=== PATIENT | female | born 1985 ===

== ENCOUNTER 2019-12-12 09:12 | Inpatient (IN) | payer OTHER ==
[2019-12-12] MEDS ORDERED: FAMOTIDINE 20 MG/2 ML INJ IV ONE (10:05)
[2019-12-12] MEDS ORDERED: BICITRA ORAL LIQD 30ML PO ONE (10:05)
[2019-12-12] MEDS ORDERED: METOCLOPRAMIDE 10 MG/2 ML INJ IV ONE (10:05)
[2019-12-12 10:25] LABS: Basophils % (Auto) 0.2 % (0.0-1.8); Eosinophils # (Auto) 0.1 K/mm3 (0.0-0.4); Hematocrit 34.4 % (30.3-42.9); Hemoglobin 11.6 gm/dl (10.1-14.3); Lymphocytes # (Auto) 1.3 K/mm3 (1.2-5.4); Lymphocytes % (Auto) 18.3 % (13.4-35.0); Mean Corpuscular HGB Conc 34 % (30-34); Mean Corpuscular Volume 86 fl (79-97); Monocytes # (Auto) 0.6 K/mm3 (0.0-0.8); Monocytes % (Auto) 8.3 % (0.0-7.3); Platelet Count 291 K/mm3 (140-440); Red Blood Count 3.99 M/mm3 (3.65-5.03); Red Cell Distribution Width 14.2 % (13.2-15.2)
[2019-12-12] MEDS: LACTATED RINGERS 1,000 ML IV SCH ×2 (10:30→11:12)
[2019-12-12] MEDS ORDERED: diphenhydrAMINE 50 MG/ML VIAL IV PRN (10:34)
[2019-12-12] MEDS ORDERED: HYDROmorphone 1 MG/1 ML INJ IV PRN (10:34)
[2019-12-12] MEDS ORDERED: PROMETHAZINE 25 MG TAB PO PRN (10:34)
[2019-12-12] MEDS ORDERED: NALOXONE 0.4 MG/1 ML INJ IV PRN ×2 (10:34→13:17)
[2019-12-12] MEDS ORDERED: PROMETHAZINE 25 MG RECT SUPP PR PRN (10:34)
[2019-12-12] MEDS ORDERED: NalbUPHINE 10 MG/1 ML INJ IV PRN (10:34)
[2019-12-12] MEDS ORDERED: ONDANSETRON 4 MG/2 ML INJ IV PRN ×2 (10:34→13:17)
--- NOTE | 2019-12-12 10:34 | Anesthesia Consultation ---
Anesthesia Consult and Med Hx Date of service: 12/12/19 - Airway Anesthetic Teeth Evaluation: Good ROM Head & Neck: Adequate Mental/Hyoid Distance: Adequate Mallampati Class: Class II Intubation Access Assessment: Good - Pulmonary Exam CTA: Yes - Cardiac Exam Cardiac Exam: RRR - Pre-Operative Health Status ASA Pre-Surgery Classification: ASA2 Proposed Anesthetic Plan: Spinal - Pulmonary Hx Smoking: No Hx Asthma: No Hx Sleep Apnea: No - Cardiovascular System Hx Hypertension: No - Central Nervous System Hx Neuromuscular Disorder: No Hx Seizures: No - Gastrointestinal Hx Gastroesophageal Reflux Disease: No - Endocrine Hx Renal Disease: No Hx End Stage Renal Disease: No Hx Cirrhosis: No Hx Liver Disease: No Hx Insulin Dependent Diabetes: No Hx Non-Insulin Dependent Diabetes: No - Hematic Hx Anemia: No Hx Sickle Cell Disease: No - Other Systems Hx Alcohol Use: No Hx Substance Use: No
--- NOTE | 2019-12-12 10:34 | Anesthesia Day of Surgery ---
Anesthesia Day of Surgery - Day of Surgery Patient Examined: Yes Patient H&P Reviewed: Yes Patient is NPO: Yes Beta Blockers: No Cardiac Clearance: No Pulmonary Clearance: No Tacho's Test: N/A
[2019-12-12] MEDS ORDERED: OXYTOCIN 20 UNIT/1000ML DRIP 20 UNITS/1,000 ML BAG IV SCH ×3 (11:00→14:00)
[2019-12-12] MEDS ORDERED: ceFAZolin/Water 2 GM/20 ML 2 GM/20 ML SYRINGE IV NR (11:00)
[2019-12-12] MEDS ORDERED: ONDANSETRON 4 MG/2 ML INJ ONE (11:34)
[2019-12-12] MEDS ORDERED: KETOROLAC 30 MG/1 ML INJ ONE (11:34)
[2019-12-12] MEDS ORDERED: BUPIVACAINE /DEX-WATER 0.75% (2 ML) AMPULE INFILTRATI ONE (11:34)
[2019-12-12] MEDS ORDERED: DEXMEDETOMIDINE 200 MCG/2 ML VIAL IV ONE (11:34)
--- NOTE | 2019-12-12 11:55 | History and Physical Report ---
History of Present Illness Date of examination: 12/12/19 Date of admission: 12/12/19 09:12 Chief complaint: here for her 3rd c/s. History of present illness: Term preg. 2 previous sections. JANICE 12/18/19. Past History Past Surgical History: section - Obstetrical History Expected Date of Delivery: 12/18/19 Actual Gestation: 39 Week(s) 1 Day(s) : 7 Medications and Allergies Allergies Allergy/AdvReac Type Severity Reaction Status Date / Time No Known Allergies Allergy Unverified 04/14/15 19:34 Home Medications Medication Instructions Recorded Confirmed Last Taken Type HYDROcodone/APAP 5-325 [[place] 1 each PO Q6HR PRN #20 tablet 04/24/15 Unknown Rx 5/325] Methylergonovine [Methergine] 0.2 mg PO Q8HR #9 tablet 04/24/15 Unknown Rx Active Meds: Active Medications Diphenhydramine HCl (Benadryl) 12.5 mg IV Q2H PRN PRN Reason: Itching Hydromorphone HCl (Dilaudid) 0.5 mg IV Q5M PRN PRN Reason: BREAK Oxytocin/Sodium Chloride (Pitocin/Ns 20 Unit/1000ml Drip) 20 units in 1,000 mls @ 0 mls/hr IV TITR DO Lactated Ringer's (Lactated Ringers) 1,000 mls @ 2,250 mls/hr IV PREOP DO Stop: 12/13/19 11:27 Last Admin: 12/12/19 11:12 Dose: 2,250 mls/hr Documented by: Cefazolin Sodium (Ancef/Sterile Water 2 Gm/20 Ml) 2 gm in 20 mls @ 80 mls/hr IV PREOP NR; Protocol Stop: 12/12/19 23:59 Nalbuphine HCl (Nalbuphine) 2.5 mg IV Q2H PRN PRN Reason: Itching Naloxone HCl (Naloxone) 0.2 mg IV Q2MIN PRN PRN Reason: Res Rate </= 8 or 02 SAT < 92% Ondansetron HCl (Zofran) 4 mg IV Q8H PRN PRN Reason: Nausea And Vomiting Promethazine HCl (Phenergan) 25 mg PO Q6H PRN PRN Reason: Nausea And Vomiting Promethazine HCl (Phenergan) 25 mg NM Q6H PRN PRN Reason: Nausea And Vomiting Sodium Chloride (Sodium Chloride Flush Syringe 10 Ml) 10 ml IV PRN NR Stop: 12/12/19 23:59 Review of Systems All systems: negative - Vital Signs Vital signs: Vital Signs Pulse BP 75 116/63 12/12/19 09:51 12/12/19 09:51 Temp Pulse Resp BP Pulse Ox 98.4 F 75 22 116/63 100 12/12/19 09:52 12/12/19 10:38 12/12/19 09:52 12/12/19 09:51 12/12/19 10:38 - Physical Exam Breasts: Positive: deferred Lungs: Positive: Normal air movement Abdomen: Positive: normal appearance, distention. Negative: tenderness, guarding Extremities: Positive: normal Deep Tendon Reflex Grade: Normal +2 - Obstetrical FHR: auscultation normal Results Result Diagrams: 12/12/19 10:00 Abnormal lab results 12/12/19 Range/Units 10:00 [place] % (Auto) 8.3 H (0.0-7.3) % Seg Neutrophils % 72.2 H (40.0-70.0) % All other labs normal. Assessment and Plan - Patient Problems (1) Term Current Visit: Yes Status: Acute (2) Previous section complicating Current Visit: Yes Status: Acute Plan to address problem: Pros and cons of a repeat section were discussed. Patient gave her consent for repeat section with lysis of adhesions.
[2019-12-12] MEDS ORDERED: PHENYLEPHRINE/NS 1,000 MCG/10 ML SYRINGE (OR USE) IV ONE (12:02)
[2019-12-12] MEDS ORDERED: ePHEDrine SULFATE 50 MG/1 ML INJ ONE (12:09)
[2019-12-12] MEDS ORDERED: ceFAZolin/STERILE WATER 2 GM/20 ML SYRINGE IV ONE (12:20)
[2019-12-12] MEDS ORDERED: fentaNYL 100 MCG/2 ML INJ ONE (12:48)
[2019-12-12] MEDS ORDERED: LANOLIN/ZINC/DIMETHICONE (LANSINOH) 7 GM TP PRN (13:17)
[2019-12-12] MEDS ORDERED: WITCH HAZEL/ GLYCERIN PAD TP PRN (13:17)
--- NOTE | 2019-12-12 13:25 | Progress Note ---
Spinal Anesthesia Block - Spinal Anesthesia Block Start Time: 11:45 Stop Time: 13:25 Performed by:: DEAN PATEL Procedure: Spinal anesthesia block is being performed for []. H&P, labs have been reviewed. Patient's questions and concerns have been answered. Informed consent has been performed. Timeout has was performed. Patient in sitting position on side of bed. Sterile prep and drape was performed. [3] mL 1% lidocaine skin wheal at L [3]-L [4]. Needle introducer advanced. 25-gauge spinal needle advanced, [+] CSF [-] blood. [10.5mg Marcaine and 10mcg Precedex] Spinal dose was given. All needles removed. Patient tolerated procedure well.
[2019-12-12] MEDS ORDERED: ACETAMINOPHEN 325 MG TAB PO PRN (13:26)
--- NOTE | 2019-12-12 13:33 | Operative Report ---
Operative Report Operative Report: Date of surgery: December 12, 2019 Preoperative diagnoses: Term , 2 previous section, peritoneal adhesions. Postoperative diagnoses: The same. Operation: Lower segment transverse delivery, lysis of adhesions Surgeon:Cristel Lamas MD Pulper Operator: Sumit Griffin CRNA Anesthesia: Spinal block Estimated blood loss: 750 mL Complications: None Findings: There was a live baby girl in vertex, Apgars were 8/9 with weight 5 pounds 13 ounces. The ovaries, fallopian tubes and the uterus were all grossly normal. The greater omentum was palpably and grossly normal but was adherent to the anterior parietal peritoneum mostly in the midline inferior to the umbilicus. Procedure in detail: The patient was taken to the operating room and given a spinal block. Patient was placed in the straight supine position and a Mckeon catheter was inserted. The patient was prepped in the abdomen. The drapes were placed. A timeout was done. With the go ahead from the children's attendant, a Pfannenstiel incision was made. This incision was carried across the subcutaneous layer to the fascia which was also divided transversely. The recti abdominis muscle flaps were stripped from the fascia using a combination of blunt and sharp dissections. The muscles were in the midline to gain access to the anterior parietal peritoneum which was divided after excluding any underlying viscera. The access to the peritoneal cavity was then widened by manual stretching. The bladder blade was applied. The utero vesicle peritoneal flap was divided transversely allowing the bladder to be displaced caudally. The uterine incision was placed in the lower segment transversely. The uterine incision was carried to the decidual layer. The uterine incision was extended on both sides using the bandage scissors. The amniotic sac was ruptured with clear fluid. The head was lifted out of the false maternal pelvis and delivered through the incision using fundal pressure aided with the Kiwi. The airways were bulb suctioned beginning with the mouth. Continuing fundal pressure combined with traction on the mandibular processes of the jaw delivered the rest of the baby. The umbilical cord was double clamped and divided. The baby was carefully transferred to the pediatric team. The placenta was manually removed from the uterine cavity. The uterine cavity was explored and was empty of any placental remnants. The uterine incision was repaired in 2 layers with #1 Vicryl. The surgical line on the uterus was hemostatic. The adherences of the greater omentum to the anterior parietal peritoneum were divided and pedicles tied off with #1 Vicryl. Hemostasis was satisfactory. Blood and clots were cleared from the peritoneal cavity. The anterior parietal peritoneum was repaired with #1 Vicryl. The fascia was repaired with #1 Vicryl. The subcutaneous layer was made hemostatic using the Bovie before the skin was closed subcuticularly with 4-0 Vicryl. There were no complications. The estimated blood loss was 750 mL. All sponges and instrument counts were correct. Patient was safely transferred to the recovery room.
[2019-12-12] MEDS: KETOROLAC 30 MG/1 ML INJ IV PRN (15:51)
[2019-12-12] MEDS: MORPHINE 4 MG/1 ML INJ IV PRN ×2 (17:27→20:50)
[2019-12-12] MEDS: ceFAZolin/NS 1 GM/50 ML 1 GM/50 ML BAG IV SCH (20:51)
[2019-12-13] MEDS: KETOROLAC 30 MG/1 ML INJ IV PRN ×2 (00:01→06:05)
[2019-12-13] MEDS: ceFAZolin/NS 1 GM/50 ML 1 GM/50 ML BAG IV SCH (03:46)
[2019-12-13 05:56] LABS: Hematocrit 26.9 % (30.3-42.9); Hemoglobin 9.1 gm/dl (10.1-14.3)
--- NOTE | 2019-12-13 08:06 | Post Anesthesia Evaluation ---
- Post Anesthesia Evaluation Patient Participated: Yes Airway Patent: Yes Stable Respiratory Function: Yes Nausea/Vomiting: No Temp > 96.8F: Yes Pain Manageable: Yes Adequeate Hydration: Yes Anesthesia Complications: No Block Receding Appropriately: Yes Patient on Ventilator: No
[2019-12-13] MEDS: PRENATAL VIT27-FE FUMARATE-FOLIC ACID VIT TAB PO SCH (09:52)
[2019-12-13] MEDS: HYDROcodone/ACETAMINOPHEN 5-325 MG TAB PO PRN ×3 (09:52→22:54)
[2019-12-13] MEDS: FERROUS SULFATE 325 MG TAB PO SCH (09:52)
--- NOTE | 2019-12-13 11:59 | Progress Note ---
Assessment and Plan A: /postop day 1 S/P LTCS. Anemia. P: Continue iron supplementation. Encouraged ambulation. Advance diet to regular diet. Subjective - Subjective Date of service: 12/13/19 Principal diagnosis: day 1 S/P LTCS Interval history: day 1 S/P LTCS. Anemia, on oral iron supplementation. Patient is voiding without difficulty, ambulating well, passing gas, tolerating liquid diet. Plans to eat a regular diet for lunch. Reports small amount of lochia. Patient reports: appetite normal, voiding normally, pain well controlled, flatus, ambulating normally, no dizzy ambulation, no nauseated : doing well Objective - Vital Signs Latest vital signs: Vital Signs Temp Pulse Resp BP Pulse Ox 12/13/19 09:52 20 12/13/19 07:49 98.4 F 76 20 94/48 96 12/13/19 05:08 98.2 F 78 20 98/51 96 12/12/19 23:27 98.2 F 82 20 96/52 96 12/12/19 19:48 98.2 F 79 20 99/50 94 12/12/19 15:09 97.6 F 74 16 96/47 98 12/12/19 14:25 98.1 F 89 20 102/41 98 12/12/19 14:10 91 H 18 115/53 98 12/12/19 13:55 92 H 19 102/44 99 12/12/19 13:50 93 H 22 107/54 98 12/12/19 13:40 89 14 106/63 98 12/12/19 13:35 92 H 17 108/53 99 12/12/19 13:30 84 16 109/42 99 12/12/19 13:25 82 17 97/61 99 12/12/19 13:23 97.6 F 86 16 96/54 99 Intake and Output 12/12/19 12/13/19 12/13/19 23:59 07:59 15:59 Intake Total 290 120 240 Output Total 600 400 600 Balance -310 -280 -360 Intake: IV 50 ANCEF/NS 1 GM/50 ML 1 gm 50 In 50 ml @ 100 mls/hr IV Q8H [facility] Rx#:[id number] Oral 240 120 240 Output: Urine 600 400 600 Indwelling Catheter 600 400 Void 600 Other: Total, Intake Amount 240 120 240 Total, Output Amount 600 400 600 # Voids Void 1 - Exam Cardiovascular: Present: Regular rate, Normal S1, Normal S2 Lungs: Present: Clear to auscultation Abdomen: Present: normal appearance, soft, normal bowel sounds. Absent: distention, tenderness, guarding, rigidity Uterus: Present: normal, firm, fundal height below umbilicus. Absent: bogginess, tenderness Extremities: Present: normal. Absent: tenderness, edema Incision: Present: normal, dry, dressed - Labs Labs: Abnormal lab results 12/13/19 Range/Units 04:54 Hgb 9.1 L (10.1-14.3) gm/dl Hct 26.9 L D (30.3-42.9) %
[2019-12-13] MEDS: IBUPROFEN 800 MG TAB PO PRN (14:55)
[2019-12-14] MEDS: HYDROcodone/ACETAMINOPHEN 5-325 MG TAB PO PRN ×2 (06:18→11:11)
[2019-12-14] MEDS: IBUPROFEN 800 MG TAB PO PRN (09:54)
[2019-12-14] MEDS: PRENATAL VIT27-FE FUMARATE-FOLIC ACID VIT TAB PO SCH (09:54)
[2019-12-14] MEDS: FERROUS SULFATE 325 MG TAB PO SCH (09:54)
[2019-12-14] MEDS ORDERED: HYDROcodone/ACETAMINOPHEN 5-325 MG TAB PO PRN ×2 (14:38→14:46)
--- NOTE | 2019-12-14 17:37 | Progress Note ---
Assessment and Plan A: /postop day 2 S/P LTCS. Anemia. P: Continue ambulation and iron supplementation. Anticipate discharge tomorrow if patient continues to do well. Subjective - Subjective Date of service: 12/14/19 Principal diagnosis: day 2 S/P LTCS Interval history: day 2 S/P LTCS. Anemia, on oral iron supplementation. Patient is voiding without difficulty, ambulating well, passing gas, tolerating regular diet. Reports small amount of lochia. Patient reports: appetite normal, voiding normally, pain well controlled, flatus, ambulating normally, no dizzy ambulation, no nauseated : doing well Objective - Vital Signs Latest vital signs: Vital Signs Temp Pulse Resp BP Pulse Ox 12/14/19 16:14 97.7 F 72 20 106/55 99 12/14/19 08:09 98.3 F 81 16 96/47 96 12/14/19 00:13 98.2 F 66 20 100/51 96 Intake and Output 12/14/19 12/14/19 12/14/19 07:59 15:59 23:59 Intake Total 120 600 Balance 120 600 Intake: Oral 120 600 Other: Total, Intake Amount 120 360 # Voids Void 1 1 - Exam Cardiovascular: Present: Regular rate, Normal S1, Normal S2, No murmurs Lungs: Present: Clear to auscultation Abdomen: Present: normal appearance, soft, normal bowel sounds. Absent: distention, tenderness, guarding, rigidity Uterus: Present: normal, firm, fundal height below umbilicus. Absent: bogginess, tenderness Extremities: Present: normal. Absent: tenderness, edema Incision: Present: normal, dry, intact
[2019-12-14] MEDS: oxyCODONE /ACETAMINOPHEN 5-325MG TAB PO PRN (18:27)
[2019-12-14] MEDS ORDERED: oxyCODONE /ACETAMINOPHEN 5-325MG TAB PO PRN (20:30)
[2019-12-14] MEDS ORDERED: diphenhydrAMINE 25 MG CAP PO PRN (20:34)
[2019-12-15] MEDS: IBUPROFEN 800 MG TAB PO PRN (02:51)
--- NOTE | 2019-12-15 07:39 | Progress Note ---
Assessment and Plan A: day 3 S/P repeat LTCS. Anemia. P: Discharge patient home today. Discussed with patient discharge instructions and warning signs. Discussed with patient care of incision and activity restrictions. Advised patient to avoid IC, lifting, housework, driving, stair climbing, and tub baths (patient may take showers). Advised patient to continue taking her vitamins and iron supplements at home. Advised patient to follow up at [facility] in 1 week for incision check. Patient voiced understanding of all instructions. Subjective - Subjective Date of service: 12/15/19 Principal diagnosis: day 3 S/P LTCS Interval history: day 3 S/P LTCS. Anemia, on oral iron supplementation. Patient is voiding without difficulty, ambulating well, passing gas, tolerating regular diet. Reports small amount of lochia. Patient reports: appetite normal, voiding normally, pain well controlled, flatus, ambulating normally, no dizzy ambulation, no nauseated : doing well Objective - Vital Signs Latest vital signs: Vital Signs Temp Pulse Resp BP Pulse Ox 12/15/19 01:09 98.0 F 69 16 105/62 100 12/14/19 16:14 97.7 F 72 20 106/55 99 12/14/19 08:09 98.3 F 81 16 96/47 96 Intake and Output 12/14/19 12/14/19 12/15/19 15:59 23:59 07:59 Intake Total 600 240 720 Balance 600 240 720 Intake: Oral 600 240 Intake, Free Water 720 Other: Total, Intake Amount 360 240 # Voids Void 1 1 1 - Exam Cardiovascular: Present: Regular rate, Normal S1, Normal S2, No murmurs Lungs: Present: Clear to auscultation Abdomen: Present: normal appearance, soft, normal bowel sounds. Absent: distention, tenderness, guarding, rigidity Uterus: Present: normal, firm, fundal height below umbilicus. Absent: bogginess, tenderness Extremities: Present: normal. Absent: tenderness, edema Incision: Present: normal, dry, intact
--- NOTE | 2019-12-15 07:41 | Discharge Summary ---
Providers - Providers Date of Admission: 12/12/19 09:12 Date of discharge: 12/15/19 Attending physician: CELINA ALONZO MD Primary care physician: CELINA ALONZO MD Hospitalization Reason for admission: section Delivery: Procedure: repeat low transverse Incision: normal, dry, intact Other procedures: none complications: none Discharge diagnosis: IUP at term delivered Tiff baby: female Pertinent studies: Labs Hospital course: Normal hospital course. Condition at discharge: Good Disposition: DC-01 TO HOME OR SELFCARE - Discharge Diagnoses (1) Term delivered Status: Acute (2) Anemia Status: Acute Plan - Discharge Medications Prescriptions: HYDROcodone/APAP 5-325 [K[place] 5/325] 1 - 2 each PO Q6HR PRN #30 tablet PRN Reason: Pain - Provider Discharge Summary Activity: routine, no sex for 6 weeks, no heavy lifting 4 weeks, no strenuous exercise Diet: routine Instructions: routine Additional instructions: Continue taking your vitamins and iron supplements at home. Call your doctor immediately for: * Fever > 100.5 * Heavy vaginal bleeding ( >1 pad per hour) * Severe persistent headache * Shortness of breath * Reddened, hot, painful area to leg or breast * Drainage or odor from incision. * Keep incision clean and dry at all times and follow doctor's instructions regarding bathing/showering - Follow up plan Follow up: CELINA ALONZO MD [Primary Care Provider] - 7 Days Forms: [facility] Discharge Summary
[2019-12-15] MEDS: PRENATAL VIT27-FE FUMARATE-FOLIC ACID VIT TAB PO SCH (11:40)
[2019-12-15] MEDS: FERROUS SULFATE 325 MG TAB PO SCH (11:40)
[2019-12-15] MEDS: oxyCODONE /ACETAMINOPHEN 5-325MG TAB PO PRN (11:41)
[2019-12-15 12:13] VITALS: BP 110/63
== END 2019-12-15 12:15 | disposition home or self-care (01) | DRG 788 ==
LOC: APU 09:12 → OB 15:31
PROVIDERS: ADMIT Obstetrics & Gynecology; ATTEND Obstetrics & Gynecology
PROC: 10D00Z1 Extraction of Products of Conception, Low, Open Approach (ICD-10-PCS; principal; 2019-12-12)
DX: O99.02 Anemia complicating childbirth (principal); O34.211 Maternal care for low transverse scar from previous cesarean delivery; Z3A.39 39 weeks gestation of pregnancy; Z37.0 Single live birth; Z79.899 Other long term (current) drug therapy
CPT/HCPCS: 36415; 59025; 85014; 85018; 85025; 86850; 86900; 86901; 96360; G0378; J0690; J1885; J2270; J2370; J2405; J2590; J2765; J3010; J3490; J7120

== ENCOUNTER 2021-12-13 05:06 | Inpatient (IN) | payer SELFPAY ==
[2021-12-12 11:31] LABS: Hematocrit 37.8 % (30.3-42.9); Hemoglobin 12.7 gm/dl (10.1-14.3); Mean Corpuscular HGB Conc 34 % (30-34); Mean Corpuscular Volume 93 fl (79-97); Platelet Count 192 K/mm3 (140-440); Red Blood Count 4.08 M/mm3 (3.65-5.03); Red Cell Distribution Width 16.3 % (13.2-15.2)
[2021-12-13] MEDS ORDERED: LACTATED RINGERS 1,000 ML ONE (05:58)
[2021-12-13] MEDS ORDERED: LACTATED RINGERS 1,000 ML IV SCH (06:00)
[2021-12-13] MEDS ORDERED: ceFAZolin/Water 2 GM/20 ML 2 GM/20 ML SYRINGE IV NR (08:30)
[2021-12-13] MEDS ORDERED: BICITRA ORAL LIQD 30ML PO SCH (08:30)
--- NOTE | 2021-12-13 08:36 | History and Physical Report ---
History of Present Illness Date of examination: 12/13/21 Date of admission: 12/13/21 05:06 Chief complaint: Here for scheduled repeat c/section and bilateral tubal ligation History of present illness: at 39.1wks by LMP c/w U/S. care at [facility]. Pt admits to movement, denies LOF and Vag bleed. Pt denies feeling painful contractions though recorded on triage monitor. Pt denies headache. Pt also admits to pain and numbness to right hand x2 wks. labs wtih O positive, RPR negative, HepBsAg neg, Rubella immune and HIV negative. GBS+ on urine culture adn 1hrgtt wnl. Past History Past Medical History: other (morbid obesity) Past Surgical History: section (x3) Social history: no significant social history - Obstetrical History Expected Date of Delivery: 12/19/21 Actual Gestation: 39 Week(s) 1 Day(s) : 8 Hx # Term Pregnancies: 3 Spontaneous Abortions: 4 Number of Living Children: 3 Medications and Allergies Allergies Allergy/AdvReac Type Severity Reaction Status Date / Time No Known Allergies Allergy Unverified 12/09/21 13:45 Home Medications Medication Instructions Recorded Confirmed Last Taken Type Vit-Fe Fumar-FA [ 1 tab PO QDAY 12/09/21 12/09/21 Unknown History Vitamin] Review of Systems All systems: negative (no complaints; pt desires no future fertility) - Vital Signs Vital signs: Vital Signs Temp Pulse Resp BP Pulse Ox 97.7 F 70 20 114/64 99 12/12/21 11:00 12/12/21 11:00 12/12/21 11:00 12/12/21 11:00 12/12/21 11:00 Temp Pulse Resp BP Pulse Ox 98.6 F 85 20 111/53 96 12/13/21 06:58 12/13/21 08:31 12/12/21 11:00 12/13/21 05:58 12/13/21 08:31 - Physical Exam Breasts: Positive: deferred Cardiovascular: Regular rate Lungs: Positive: Normal air movement Abdomen: Positive: soft Genitourinary (Female): Positive: normal external genitalia Vagina: Positive: normal moisture Uterus: Positive: enlarged (non-tender) - Obstetrical FHR: category 1 Uterine Contraction Monitor Mode: External Uterine Contraction Pattern: Irregular Uterine Contraction Intensity: Moderate Results Result Diagrams: 12/12/21 10:59 Abnormal lab results 12/12/21 Range/Units 10:59 RDW 16.3 H (13.2-15.2) % All other labs normal. Assessment and Plan Grandmultiparous at 39.1wks with previous c/section x3 and desires no future fertility 1. Admit for repeat section and bilateral tubal sterilization and consents valid. Contracting Engineer from patient's clinic used to Discuss the risks, infection and or damage to the adjacent structure, bleeding and the benefits and alternatives of this procedure. Consents signed 2. NICU and Anesthesiologist notified 3. All questions encouraged and answered
[2021-12-13] MEDS ORDERED: FAMOTIDINE 20 MG/2 ML INJ IV SCH (09:00)
[2021-12-13] MEDS ORDERED: METOCLOPRAMIDE 10 MG/2 ML INJ IV SCH (09:00)
[2021-12-13] MEDS ORDERED: OXYTOCIN DRIP 30 UNITS/500 ML BAG IV SCH ×2 (09:00)
[2021-12-13] MEDS ORDERED: ONDANSETRON 4 MG/2 ML INJ IV PRN ×2 (09:30→15:30)
[2021-12-13] MEDS ORDERED: WITCH HAZEL/ GLYCERIN PAD TP PRN (09:30)
[2021-12-13] MEDS ORDERED: NALOXONE 0.4 MG/1 ML INJ IV PRN ×2 (09:30→16:00)
[2021-12-13] MEDS ORDERED: LANOLIN/ZINC/DIMETHICONE (LANSINOH) 7 GM TP PRN (09:30)
[2021-12-13] MEDS ORDERED: IBUPROFEN 600 MG TAB PO PRN (09:30)
[2021-12-13] MEDS ORDERED: MORPHINE 4 MG/1 ML INJ IV PRN ×2 (09:30→15:30)
[2021-12-13] MEDS ORDERED: PROMETHAZINE 25 MG RECT SUPP PR PRN ×2 (09:30→15:30)
[2021-12-13] MEDS ORDERED: ACETAMINOPHEN 325 MG TAB PO PRN (09:30)
[2021-12-13] MEDS ORDERED: ONDANSETRON 4 MG/2 ML INJ ONE (11:54)
[2021-12-13] MEDS ORDERED: PHENYLEPHRINE/NS 1,000 MCG/10 ML SYRINGE (OR USE) IV ONE (11:54)
[2021-12-13] MEDS ORDERED: ePHEDrine SULFATE 50 MG/1 ML INJ ONE (11:54)
[2021-12-13] MEDS ORDERED: miSOPROStol 200 MCG TAB ONE (12:09)
[2021-12-13] MEDS ORDERED: CARBOPROST TROMETHAMINE 250 MCG/1 ML INJ IM ONE (12:09)
[2021-12-13] MEDS ORDERED: BUPIVACAINE/PF (0.5%) 5 MG/1 ML 30 ML VIAL INFILTRATI ONE (13:13)
[2021-12-13] MEDS ORDERED: fentaNYL 100 MCG/2 ML INJ ONE ×2 (13:31→14:08)
[2021-12-13] MEDS ORDERED: KETOROLAC 30 MG/1 ML INJ ONE (14:06)
[2021-12-13] MEDS ORDERED: HYDROmorphone 1 MG/1 ML INJ IV PRN ×2 (15:30→16:00)
[2021-12-13] MEDS ORDERED: PROMETHAZINE 25 MG TAB PO PRN (15:30)
--- NOTE | 2021-12-13 15:42 | Procedure Note ---
OB Delivery Note - Delivery Date of Delivery: 12/13/21 Surgeon: VAL LOCO Estimated blood loss: other (871cc by QBL) - Section Preop diagnosis: repeat , desires sterilization Postop diagnosis: other (extensive intraabdominal adhesions with bladder and uterus to anterior abdominal wall) section procedure: repeat low transverse, bilateral tubal ligation (via salpingectomy) Disposition: floor Complications: none Narrative: Date: 12/13/21 Surgeon: Val Loco MD Preop Dx: IUP at 39.2wks, previous section x3; multiparous desires permanent sterilization Postop Dx: same and extensive intraabdominal adhesions, Incomplete breech presentation; unstable lie Procedure : Repeat Low Transverse Section, lysis of adhesions, bilateral tubal ligation via salpingectomy Anesthesia: Spinal Intake: 1800cc Output: 100cc clear EBL: 871cc After the risks, benefits and alternatives of procedure discussed, patient signed consents and was taken to the operating room. Pt was given spinal anesthesia. After same was adequate, patient was prepped and draped in the usual sterile fashion. Mckeon catheter in place and draining clear urine. Pt was given prophylactic antibiotic per protocol and time out was done Pfannenstiel skin incision was made and taken sharply to the fascia and the incision extended using electrocautery. Superior edge of the fascia was grasped with javad clamps and the rectus muscle using blunt dissection and also using electrocautery. Lower portion of the fascia also electrocautery. Rectus muscle in the midline sharply and time taken to find a clear plain with dense adhesions until a window into the peritoneal cavity was seen and extended upwards sharply using metzenbaum scissors until dense adhesion to bladder peritoneum cleared sharply and good visualization of the bladder. The bladder flap was created sharply using metzenbaum scissors then suzie retractor placed. Bladder blade also had to be used with adhesion to left side of bladder unable to be released safely. Breech presentation noted at this time, with unstable lie and Lower uterine segment then entered transversely and amniotic sac entered using allys clamps. Uterine incision extended using bandage scissors. delivered breech in usual fashion by grasping both feet and then body and with head flexed downward, baby delivered uncomplicated, bulb suctioned, cord clamped and baby handed to waiting pediatricians. Posterior Placenta then delivered completely and uterine cavity cleared of all clots and debri. The uterus was not exteriorized and closed in 2 layers using [0-vicryl] suture in a running locked fashion and then an additional layer of figure of 8 sutures for imbrication suture. Excellent hemostasis noted. The gutters were cleared of clots and debri and then left tube identified and followed out to it's fimbriated end and avascular portion of the mesosalpinx entered and the distal tubal segment with fimbriae excised, and free ends doubly ligated with excellent hemostasis noted. Attention turned to the right tube which in a similar manner was excised with fimbriae and remaining free ends doubly ligated using 0-vicryl suture. Surgicel placed along the uterine incision. The anterior peritoneum with scar and rectus muscle reapproximated with 0- monocryl suture in a continuous fashion. Rectus fascia closed with 0-vicryl suture in a continuous fashion and the subcutaneous tissue copiously irrigated with normal saline and re-approximated using 3-0 vicryl suture in a continuous fashion. Excellent hemostasis remains. The skin was closed with 3-0 monocryl suture subcutaneously and an additional interrupted suture placed x2 areas for better approximation then steristrips placed with pressure dressing. Sponge, lap, instrument and needle counts x3 were normal. Patient tolerated the procedure well and was taken to recovery room stable. Throughout the case pt had discomfort on the right side and pain management addressed by anesthesia Findings: Viable male infant, APGARS 8/9 and weight 3345g. Uterus distorted and adherent anteriorly with serosa to abdominal wall, filmy adhesions to left ovary and right ovary and both tubes wnl - A at 1 minute: 9 at 5 minutes: 9 Gender: Male (wt 3345g; large amount of amniotic fluid)
[2021-12-13] MEDS ORDERED: miSOPROStol 200 MCG TAB PR ONE (15:45)
[2021-12-13] MEDS ORDERED: fentaNYL-BUPIV 2 MCG/ML-0.125% 200 MCG/100 ML BAG EPIDURAL SCH (16:00)
--- NOTE | 2021-12-13 16:03 | Anesthesia Day of Surgery ---
Anesthesia Day of Surgery - Day of Surgery Patient Examined: Yes Patient H&P Reviewed: Yes Patient is NPO: Yes Beta Blockers: No Cardiac Clearance: No Pulmonary Clearance: No Tacho's Test: N/A
--- NOTE | 2021-12-13 16:03 | Anesthesia Consultation ---
Anesthesia Consult and Med Hx Date of service: 12/13/21 - Airway Anesthetic Teeth Evaluation: Good ROM Head & Neck: Adequate Mental/Hyoid Distance: Adequate Mallampati Class: Class II Intubation Access Assessment: Probably Good - Pulmonary Exam CTA: Yes - Cardiac Exam Cardiac Exam: RRR - Pre-Operative Health Status ASA Pre-Surgery Classification: ASA2 Proposed Anesthetic Plan: Spinal Nerve Block: [place] - Pulmonary Hx Smoking: No Hx Asthma: No Hx Respiratory Symptoms: No SOB: No COPD: No Home Oxygen Therapy: No Hx Pneumonia: No Hx Sleep Apnea: No - Cardiovascular System Hx Hypertension: No Hx Coronary Artery Disease: No Hx Heart Attack/AMI: No Hx Angina: No Hx Percutaneous Transluminal Coronary Angioplasty (PTCA): No Hx Cardia Arrhythmia: No Hx Pacemaker: No Hx Internal Defibrillator: No Hx Valvular Heart Disease: No Hx Heart Murmur: No Hx Peripheral Vascular Disease: No - Central Nervous System Hx Neuromuscular Disorder: No Hx Seizures: No CVA: No Hx Back Pain: No Hx Psychiatric Problems: No - Gastrointestinal Hx Ulcer: No Hx Gastroesophageal Reflux Disease: No - Endocrine Hx Renal Disease: No Hx End Stage Renal Disease: No Hx Cirrhosis: No Hx Liver Disease: No Hx Insulin Dependent Diabetes: No Hx Non-Insulin Dependent Diabetes: No Hx Thyroid Disease: No Hx Hypothyroidism: No Hx Hyperthyroidism: No - Hematic Hx Anemia: No Hx Sickle Cell Disease: No - Other Systems Hx Alcohol Use: No Hx Substance Use: No Hx Cancer: No Hx Obesity: No
--- NOTE | 2021-12-13 16:04 | Progress Note ---
Spinal Anesthesia Block - Spinal Anesthesia Block Start Time: 12:52 Stop Time: 13:00 Performed by:: ROSENDA HEARN Procedure: Patient placed in sitting position with monitors applied. Timeout performed immediately before start of procedure. Prep/drape in usual sterile fashion. Skin localized 3 mL 1% lidocaine at L[4]-L[5] interspace. 25g spinal needle advanced into intrathecal space until clear, free flowing CSF noted. 1.6cc 0.75% hyperbaric bupivacaine + 0.5mcg Precedex injected into intrathecal space and spinal needle removed. Patient tolerated procedure well. No immediate complications noted.
--- NOTE | 2021-12-13 16:05 | Progress Note ---
Regional Anesthesia Block - Regional Anesthesia Block Start Time: 15:10 Stop Time: 15:23 Performed By:: ROSENDA HEARN Procedure: Patient consented for TAP block for post surgical pain management. Patient identified, monitors placed, and time out performed. TAP identified bilaterally via ultrasound. Skin prepped bilaterally with [chlorhexidine] and [22g stimuplex] needle advanced to the TAP. Marcaine 0.25% 30ml injected under ul trasound guidance on the [left] side. [Marcaine 0.25% 30ml injected under ultrasound guidance on the [right] side. Negative aspiration every 5mL, No change in heart rate or rhythm. Patient tolerated the procedure well. No apparent complications seen.
[2021-12-13] MEDS ORDERED: SODIUM CHLORIDE 0.9% 1000 ML 1,000 ML ONE (16:27)
[2021-12-13] MEDS ORDERED: SODIUM CHLORIDE 0.9% 1000 ML 1,000 ML IV ONE (16:43)
--- NOTE | 2021-12-13 17:18 | Event Note ---
Date: 12/13/21 pt seen in recovery room c/o chest pain. O2 sat at 96-97%; EKG stat ordered and anteroseptal defect seen on report. Oxygen ordered. I spoke with dr. Pichardo who states he will see the patient on . Vitals wnl and bleeding scant. Pt given IV normal saline to increase urinary output.
[2021-12-13] MEDS ORDERED: MAGNESIUM HYDROXIDE (MOM) ORAL LIQD UDC PO PRN (22:00)
[2021-12-13] MEDS ORDERED: SENNOSIDES 8.6 MG TAB PO PRN (22:00)
[2021-12-13] MEDS: oxyCODONE /ACETAMINOPHEN 5-325MG TAB PO PRN (22:42)
[2021-12-14] MEDS ORDERED: SODIUM CHLORIDE 0.9% 250ML 0 ML ONE (04:14)
[2021-12-14] MEDS ORDERED: SODIUM CHLORIDE 0.9% 1000 ML 1,000 ML ONE (04:19)
[2021-12-14] MEDS: oxyCODONE /ACETAMINOPHEN 5-325MG TAB PO PRN ×3 (05:30→18:20)
[2021-12-14 05:54] LABS: Basophils % (Auto) 0.4 % (0.0-1.8); Eosinophils % (Auto) 0.5 % (0.0-4.3); Hematocrit 32.3 % (30.3-42.9); Hemoglobin 11.1 gm/dl (10.1-14.3); Lymphocytes % (Auto) 12.7 % (13.4-35.0); Mean Corpuscular HGB Conc 35 % (30-34); Mean Corpuscular Volume 93 fl (79-97); Monocytes # (Auto) 0.6 K/mm3 (0.0-0.8); Monocytes % (Auto) 7.4 % (0.0-7.3); Platelet Count 156 K/mm3 (140-440); Red Blood Count 3.47 M/mm3 (3.65-5.03); Red Cell Distribution Width 15.9 % (13.2-15.2)
--- NOTE | 2021-12-14 07:35 | Post Anesthesia Evaluation ---
- Post Anesthesia Evaluation Patient Participated: Yes Airway Patent: Yes Stable Respiratory Function: Yes Nausea/Vomiting: No Temp > 96.8F: Yes Pain Manageable: Yes Adequeate Hydration: Yes Anesthesia Complications: No Block Receding Appropriately: Yes Patient on Ventilator: No Other Comments: Pt originally complained of chest pain in pacu that developed during c/s when there was tugging and pulling on pt's abdomen. No ST changes or low BP occured during c/s. EKG in pacu showed an atrialseptal defect. Pt was transferred to 2nd floor mother/baby and hospitalist saw pt and believes that the chest pain id due to muscle temderness from c/s. Pt is ambulating well with minimal complaints of pain.
--- NOTE | 2021-12-14 07:40 | Consultation ---
History of Present Illness - Reason for Consult Consult date: 12/13/21 Medical management Requesting physician: ALIVIA LOCO - History of Present Illness pt seen in recovery room c/o chest pain. O2 sat at 96-97%; EKG stat ordered and anteroseptal defect seen on report. Oxygen ordered. I spoke with dr. Pichardo who states he will see the patient on . Vitals wnl and bleeding scant. Pt given IV normal saline to increase urinary output. Complains of chest pain--right costochondral junction tenderness to palpation present Past History Past Medical History: No medical history Social history: no significant social history Family history: hypertension Medications and Allergies Allergies Allergy/AdvReac Type Severity Reaction Status Date / Time No Known Allergies Allergy Unverified 12/09/21 13:45 Home Medications Medication Instructions Recorded Confirmed Last Taken Type Vit-Fe Fumar-FA [ 1 tab PO QDAY 12/09/21 12/09/21 Unknown History Vitamin] Ibuprofen [Motrin] 800 mg PO Q8HR PRN 21 Days #40 12/13/21 Unknown Rx tablet oxyCODONE /ACETAMINOPHEN [Percocet 1 tab PO Q4HR PRN 21 Days #30 tab 12/13/21 Unknown Rx 5/325] Active Meds: Active Medications Acetaminophen (Acetaminophen 325 Mg Tab) 650 mg PO Q4H PRN PRN Reason: Fever >100.5/BIANCHI Hydromorphone HCl (Hydromorphone 1 Mg/1 Ml Inj) 0.5 mg IV Q4H PRN PRN Reason: breakthrough pain > 7/10 Last Admin: 12/13/21 20:06 Dose: 0.5 mg Oxytocin/Sodium Chloride (Pitocin/Ns 30 Unit/500ml) 30 units in 500 mls @ 40 mls/hr IV TITR DO; Protocol Cefazolin Sodium 2 gm/ Sodium (Chloride) 100 mls @ 200 mls/hr IV Q8H DO; Protocol Stop: 12/14/21 12:29 Last Admin: 12/14/21 04:30 Dose: 200 mls/hr Fentanyl/Bupivacaine/Sodium Chlor (Fentanyl-Bupiv 2 Mcg/Ml-0.125%) 200 mcg in 100 mls @ 8 mls/hr EPIDURAL TITRATE DO; Protocol Ibuprofen (Ibuprofen 800 Mg Tab) 800 mg PO Q6H PRN PRN Reason: Pain, Moderate (4-6) Magnesium Hydroxide (Magnesium Hydroxide (Mom) Oral Liqd Udc) 30 ml PO QHS PRN PRN Reason: Constip Unrelieved By Senna Morphine Sulfate (Morphine 4 Mg/1 Ml Inj) 4 mg IV Q4H PRN PRN Reason: Pain , Severe (7-10) Last Admin: 12/14/21 02:35 Dose: 4 mg Multi-Ingredient Ointment (Lanolin/Zinc/Dimethicone (Lansinoh) 7 Gm) 1 applic TP PRN PRN PRN Reason: dryness/cracking Multivitamins/Iron/Calcium ( [id number] Fumarate-Folic Acid Vit Tab) 1 each PO QDAY DO Naloxone HCl (Naloxone 0.4 Mg/1 Ml Inj) 0.2 mg IV Q2MIN PRN PRN Reason: Res Rate </= 8 or 02 SAT < 92% Ondansetron HCl (Ondansetron 4 Mg/2 Ml Inj) 4 mg IV Q8H PRN PRN Reason: Nausea And Vomiting Oxycodone/Acetaminophen (Oxycodone /Acetaminophen 5-325mg Tab) 2 tab PO Q6H PRN PRN Reason: Pain, Moderate (4-6) Last Admin: 12/14/21 05:30 Dose: 2 tab Pantoprazole Sodium (Pantoprazole 40 Mg Inj) 40 mg IV QDAY [facility] Stop: 12/16/21 10:01 Promethazine HCl (Promethazine 25 Mg Tab) 25 mg PO Q6H PRN PRN Reason: Nausea And Vomiting Promethazine HCl (Promethazine 25 Mg Rect Supp) 25 mg DC Q6H PRN PRN Reason: Nausea And Vomiting Senna (Sennosides 8.6 Mg Tab) 17.2 mg PO QHS PRN PRN Reason: Constipation Simethicone (Simethicone 80 Mg Chew Tab) 80 mg PO Q6H PRN PRN Reason: Gas pain Sodium Chloride (Sodium Chloride 0.9% 10 Ml Flush Syringe) 10 ml IV PRN PRN PRN Reason: flush Sodium Chloride (Sodium Chloride 0.9% 10 Ml Flush Syringe) 10 ml IV PRN NR Stop: 12/25/21 15:59 Witch Marilee/Glycerin (Witch Marilee/ Glycerin Pad) 1 each TP PRN PRN PRN Reason: Hemorrhoids/cleansing/soothing Review of Systems All systems: negative Cardiovascular: chest pain Exam - Constitutional Vitals: Temp Pulse Resp BP Pulse Ox 98.0 F 65 18 99/52 97 12/14/21 04:47 12/14/21 04:47 12/14/21 04:47 12/14/21 04:47 12/14/21 04:47 General appearance: Present: no acute distress, well-nourished - EENT Eyes: Present: PERRL ENT: hearing intact, clear oral mucosa - Neck Neck: Present: supple, normal ROM - Respiratory Respiratory effort: normal Respiratory: bilateral: CTA - Cardiovascular Heart rate: 78 Rhythm: regular Heart Sounds: Present: S1 & S2. Absent: rub, click Details: Chest wall tenderness present. On the right costochondral junction - Extremities Extremities: pulses symmetrical, No edema Peripheral Pulses: within normal limits - Abdominal General gastrointestinal: Present: soft, non-tender, non-distended, normal bowel sounds Female genitourinary: Present: normal - Integumentary Integumentary: Present: clear, warm, dry - Musculoskeletal Musculoskeletal: gait normal, strength equal bilaterally - Psychiatric Psychiatric: appropriate mood/affect, intact judgment & insight - Neurologic Neurologic: CNII-XII intact, moves all extremities HEART Score - HEART Score EKG: Normal Age: < 45 Risk factors: No known risk factors Troponin: Troponin T < 0.010 ng/mL (0.00-0.029) 12/14/21 00:28 Troponin: < normal limit - Critical Actions Critical Actions: 0-3 pts:0.9-1.7%risk of adverse cardiac event.Candidate for discharge Results - Labs CBC & Chem 7: 12/14/21 05:09 Labs: Abnormal lab results 12/14/21 Range/Units 05:09 RBC 3.47 L (3.65-5.03) M/mm3 MCHC 35 H (30-34) % RDW 15.9 H (13.2-15.2) % Lymph % (Auto) 12.7 L (13.4-35.0) % [place] % (Auto) 7.4 H (0.0-7.3) % Lymph # (Auto) 1.0 L (1.2-5.4) K/mm3 Seg Neutrophils % 79.0 H (40.0-70.0) % Assessment and Plan - Patient Problems (1) Chest pain, atypical Current Visit: Yes Status: Acute Plan to address problem: Possible costochondritis Patient has chest wall tenderness at the right costochondral junction EKG is normal Troponin is normal Chest pain is noncardiac and musculoskeletal Tylenol 650 every 4 as needed
[2021-12-14] MEDS: PRENATAL VIT27-FE FUMARATE-FOLIC ACID VIT TAB PO SCH (09:15)
[2021-12-14] MEDS: IBUPROFEN 800 MG TAB PO PRN ×2 (09:15→21:43)
--- NOTE | 2021-12-14 09:48 | Electrocardiograph Report ---
[facility] Test Date: 2021-12-13 Test Time: 17:06:41 Pat Name: CHELSY FAITH Department: Room: 2139 1 Gender: F [employer] Supervisor: 0000 : 1985 Requested By: LISA LEGER Order Number: [id number] Reading MD: Juan Manuel Koo Measurements Intervals [place] Rate: 73 P: 19 OK: 133 QRS: 3 QRSD: 76 T: 1 QT: 399 QTc: 440 Interpretive Statements Sinus rhythm Anteroseptal infarct, age indeterminate No previous ECG available for comparison Electronically Signed On 12-14-2021 9:47:23 EDT by Juan Manuel Koo
--- NOTE | 2021-12-14 11:13 | Event Note ---
Date: 12/14/21 The hospitalist service was consulted on the patient for right-sided chest pain that developed after a section. The patient underwent evaluation including EKG, troponins, and physical evaluation. The EKG, though reading anteroseptal infarct of unknown age, does not coincide with the unremarkable troponins x3 and the reproducible chest pain on physical exam. The patient has since been reassessed and has minimal complaints of pain. Patient likely has right-sided costochondritis, which can be treated with NSAIDs if the pain continues. Thank you for this interesting consult. The hospitalist service will be signing off. Please do not hesitate to reach out should any questions arise.
--- NOTE | 2021-12-14 11:20 | Progress Note ---
Assessment and Plan POD#1 repeat c/section and bilateral salpingectomy; now with shortness of breath and labs wnl; Chest pain resolved, ?costochondritis on the right side only 1. Will order chest Xray now 2. Appreciate hospitalist Dr. Pichardo 3. Encouraged pt to ambulate in the room and nurse to give simethecone as needed 4. Routine post op check Subjective Date of service: 12/14/21 Principal diagnosis: POD#1 Repeat C/S and Bilateral Salpingectomy Interval history: Pt c/o pain to right side of incision when she sits up; pt denies any problems voiding. Pt denies passing flatus. Pt states that her chest pain from yesterday resolved. Today however, while I was speaking with her, she is short of breath. Denies N/V/F/C. Vag bleed less than a period. Objective - Constitutional Vitals: Vital Signs - 12hr 12/14/21 12/14/21 12/14/21 00:30 04:47 08:47 Temperature 98.4 F 98.0 F 98.2 F Pulse Rate 75 65 66 Respiratory 18 18 18 Rate Blood Pressure 99/52 97/55 Blood Pressure 105/75 [Left] O2 Sat by Pulse 97 97 Oximetry O2 Sat by Pulse Oximetry [ Bilateral Throughout] 12/14/21 09:15 Temperature Pulse Rate Respiratory Rate Blood Pressure Blood Pressure [Left] O2 Sat by Pulse Oximetry O2 Sat by Pulse 98 Oximetry [ Bilateral Throughout] General appearance: Present: no acute distress - Neck Neck: normal ROM - Respiratory Respiratory effort: labored (with speaking) - Breasts Breasts: deferred - Cardiovascular Rhythm: regular Extremities: No edema - Gastrointestinal General gastrointestinal: Present: soft, non-tender, other (Dressing C/D/I) - Genitourinary Female genitourinary: other (Fundus 1cm below umbilicus and non-tender;) - Integumentary Integumentary: warm, dry - Neurologic Neurologic: moves all extremities - Psychiatric Psychiatric: cooperative - Labs CBC & Chem 7: 12/14/21 05:09 Labs: Abnormal lab results 12/14/21 Range/Units 05:09 RBC 3.47 L (3.65-5.03) M/mm3 MCHC 35 H (30-34) % RDW 15.9 H (13.2-15.2) % Lymph % (Auto) 12.7 L (13.4-35.0) % [place] % (Auto) 7.4 H (0.0-7.3) % Lymph # (Auto) 1.0 L (1.2-5.4) K/mm3 Seg Neutrophils % 79.0 H (40.0-70.0) % Medications & Allergies - Medications Allergies/Adverse Reactions: Allergies No Known Allergies Allergy (Unverified 12/09/21 13:45) Home Medications: Home Medications Medication Instructions Recorded Confirmed Last Taken Type Vit-Fe Fumar-FA [ 1 tab PO QDAY 12/09/21 12/09/21 Unknown His tory Vitamin] Ibuprofen [Motrin] 800 mg PO Q8HR PRN 21 Days #40 12/13/21 Unknown Rx tablet oxyCODONE /ACETAMINOPHEN [Percocet 1 tab PO Q4HR PRN 21 Days #30 tab 12/13/21 Unknown Rx 5/325] Active Medications: Generic Name Dose Route Start Last Admin Trade Name Alexanderq PRN Reason Stop Dose Admin Acetaminophen 650 mg 12/13/21 09:30 Acetaminophen 325 Mg Tab PO Q4H PRN Fever >100.5/BIANCHI Hydromorphone HCl 0.5 mg 12/13/21 16:00 12/13/21 20:06 Hydromorphone 1 Mg/1 Ml Inj IV 0.5 mg Q4H PRN Administration breakthrough pain > 7/10 Oxytocin/Sodium Chloride 30 units in 500 mls @ 40 mls/hr 12/13/21 09:00 Pitocin/Ns 30 Unit/500ml IV TITR DO Protocol Cefazolin Sodium 2 gm/ Sodium 100 mls @ 200 mls/hr 12/13/21 20:00 12/14/21 04:30 Chloride IV 12/14/21 12:29 200 mls/hr Q8H DO Administration Protocol Fentanyl/Bupivacaine/Sodium Chlor 200 mcg in 100 mls @ 8 mls/hr 12/13/21 16:00 Fentanyl-Bupiv 2 Mcg/Ml-0.125% EPIDURAL TITRATE [facility] Protocol Ibuprofen 800 mg 12/13/21 09:30 12/14/21 09:15 Ibuprofen 800 Mg Tab PO 800 mg Q6H PRN Administration Pain, Moderate (4-6) Magnesium Hydroxide 30 ml 12/13/21 22:00 Magnesium Hydroxide (Mom) Oral Liqd Udc PO QHS PRN Constip Unrelieved By Senna Morphine Sulfate 4 mg 12/13/21 09:30 12/14/21 02:35 Morphine 4 Mg/1 Ml Inj IV 4 mg Q4H PRN Administration Pain , Severe (7-10) Multi-Ingredient Ointment 1 applic 12/13/21 09:30 Lanolin/Zinc/Dimethicone (Lansinoh) 7 Gm TP PRN PRN dryness/cracking Multivitamins/Iron/Calcium 1 each 12/13/21 10:00 12/14/21 09:15 [id number] Fumarate-Folic Acid Vit Tab PO 1 each QDAY [facility] Administration Naloxone HCl 0.2 mg 12/13/21 16:00 Naloxone 0.4 Mg/1 Ml Inj IV Q2MIN PRN Res Rate </= 8 or 02 SAT < 92% Ondansetron HCl 4 mg 12/13/21 15:30 Ondansetron 4 Mg/2 Ml Inj IV Q8H PRN Nausea And Vomiting Oxycodone/Acetaminophen 2 tab 12/13/21 09:30 12/14/21 05:30 Oxycodone /Acetaminophen 5-325mg Tab PO 2 tab Q6H PRN Administration Pain, Moderate (4-6) Pantoprazole Sodium 40 mg 12/14/21 16:44 Pantoprazole 40 Mg Inj IV 12/16/21 10:01 QDAY [facility] Promethazine HCl 25 mg 12/13/21 15:30 Promethazine 25 Mg Tab PO Q6H PRN Nausea And Vomiting Promethazine HCl 25 mg 12/13/21 15:30 Promethazine 25 Mg Rect Supp MD Q6H PRN Nausea And Vomiting Senna 17.2 mg 12/13/21 22:00 Sennosides 8.6 Mg Tab PO QHS PRN Constipation Simethicone 80 mg 12/13/21 09:30 Simethicone 80 Mg Chew Tab PO Q6H PRN Gas pain Sodium Chloride 10 ml 12/13/21 09:30 Sodium Chloride 0.9% 10 Ml Flush Syringe IV PRN PRN flush Sodium Chloride 10 ml 12/13/21 16:00 Sodium Chloride 0.9% 10 Ml Flush Syringe IV 12/25/21 15:59 PRN NR Witch Marilee/Glycerin 1 each 12/13/21 09:30 Witch Marilee/ Glycerin Pad TP PRN PRN Hemorrhoids/cleansing/soothing HEART Score - HEART Score EKG: Normal Age: < 45 Risk factors: No known risk factors Troponin: Troponin T < 0.010 ng/mL (0.00-0.029) 12/14/21 07:21 Troponin: < normal limit - Critical Actions Critical Actions: 0-3 pts:0.9-1.7%risk of adverse cardiac event.Candidate for discharge
[2021-12-14] MEDS: SIMETHICONE 80 MG CHEW TAB PO PRN ×2 (11:40→18:21)
--- NOTE | 2021-12-14 12:10 | XRay Report ---
CHEST PA AND LATERAL VIEWS INDICATION: shortness of breath, chest pain; POD#1 c/s. COMPARISON: None. FINDINGS: Support devices: None. Heart: Within normal limits. Lungs/Pleura: No acute pulmonary or pleural findings. IMPRESSION: 1. No acute findings. Signer Name: Jaiden Pimentel MD Signed: 12/14/2021 12:05 PM Workstation Name: [id number]
[2021-12-14] MEDS: PANTOPRAZOLE 40 MG INJ IV SCH (18:48)
[2021-12-15] MEDS: oxyCODONE /ACETAMINOPHEN 5-325MG TAB PO PRN ×2 (08:25→15:15)
[2021-12-15] MEDS: PANTOPRAZOLE 40 MG INJ IV SCH (10:15)
[2021-12-15] MEDS: PRENATAL VIT27-FE FUMARATE-FOLIC ACID VIT TAB PO SCH (10:15)
--- NOTE | 2021-12-15 10:31 | Progress Note ---
Assessment and Plan A: POD #2 Stable Possible Costochondritis P: Follow Routine Postparum Orders D/C home today RTO in One Week Subjective - Subjective Date of service: 12/15/21 Principal diagnosis: POD#1 Repeat C/S and Bilateral Salpingectomy Patient reports: appetite normal, voiding normally, pain well controlled, flatus, ambulating normally, other (States she has not had chest pain or shortness of breath in over 24 hours; Request to go home today) : doing well, bottle feeding Objective - Vital Signs Latest vital signs: Vital Signs Temp Pulse Resp BP BP Pulse Ox Pulse Ox 12/15/21 08:20 98 12/15/21 08:13 98.3 F 72 18 105/55 98 12/15/21 00:57 70 93/57 12/15/21 00:54 97.8 F 65 18 90/42 97 12/14/21 22:40 98 12/14/21 21:43 18 98 12/14/21 19:20 99 12/14/21 17:20 98.2 F 75 18 104/60 98 Intake and Output 12/14/21 12/15/21 12/15/21 22:59 06:59 14:59 Intake Total 1400 240 120 Output Total 700 Balance 700 240 120 Intake: Oral 800 240 120 Intake, Free Water 600 Output: Urine 700 Void 700 Other: Total, Intake Amount 120 120 120 Total, Output Amount 700 # Voids Void 1 1 1 - Exam Breasts: Present: normal Cardiovascular: Present: Regular rate Lungs: Present: Clear to auscultation, Normal air movement Abdomen: Present: normal appearance, soft, normal bowel sounds Uterus: Present: normal, firm, fundal height below umbilicus Extremities: Present: normal Incision: Present: normal, dry, intact
--- NOTE | 2021-12-15 10:33 | Discharge Summary ---
Providers - Providers Date of Admission: 12/13/21 05:06 Date of discharge: 12/15/21 Attending physician: ALIVIA LOCO 12/13/21 17:14 Consult to Physician [CONS] Urgent Comment: Consulting Provider: SAHARA CALDERON Physician Instructions: Reason For Exam: chest pain post op c/s, ekg anteroseptal infarct 12/14/21 13:13 psychiatry consult [Consult to Mental Health] [CONS] Routine Reason For Exam: [place] score 12 Primary care physician: CELINA ALONZO MD Hospitalization Reason for admission: section Delivery: Procedure: bilateral tubal ligation, repeat low transverse Episiotomy: none Laceration: none Incision: normal, dry, intact Other procedures: none complications: other (Chest Pain) Discharge diagnosis: IUP at term delivered baby: male Condition at discharge: Good Disposition: 01 HOME / SELF CARE / HOMELESS Plan - Discharge Medications Prescriptions: Ibuprofen [Motrin] 800 mg PO Q8HR PRN 21 Days #40 tablet PRN Reason: Pain, Moderate (4-6) oxyCODONE /ACETAMINOPHEN [Percocet 5/325] 1 tab PO Q4HR PRN 21 Days #30 tab PRN Reason: Pain , Severe (7-10) - Provider Discharge Summary Activity: routine, no sex for 6 weeks, no heavy lifting 4 weeks, no strenuous exercise Diet: routine Instructions: routine Additional instructions: [] Smoking cessation referral if applicable(refer to patient education folder for contact #) [] Refer to [facility]'s [facility] Booklet Call your doctor immediately for: * Fever > 100.5 * Heavy vaginal bleeding ( >1 pad per hour) * Severe persistent headache * Shortness of breath * Reddened, hot, painful area to leg or breast * Drainage or odor from incision. * Keep incision clean and dry at all times and follow doctor's instructions regarding bathing/showering - Follow up plan Follow up: CELINA ALONZO MD [Primary Care Provider] - 7 Days
--- NOTE | 2021-12-15 13:26 | Consultation ---
History of Present Illness - Reason for Consult Consult date: 12/15/21 Reason for consult: mental health evaluation - Chief Complaint Chief complaint: Here for scheduled repeat c/section and bilateral tubal ligation - History of Present Psychiatric Illness The patient is a 36 year old female with history of depression. She was seen with her at bedside. She is calm, alert and oriented x3. The patient reports having depression with her 2 year old child,states her PCP started on some medications that she is unable recall the name. The patient states she is doing ok. She denies depression or feeling excessively anxious. She denies suicidal/homicidal ideation and denies hallucinations. The patient states she will follow up with her PCP if symptoms reoccur. Discussed outpatient psychiatry referral and resources. PAST PSYCHIATRIC HISTORY Diagnoses: depression Suicide attempts or Self-harm behavior: Denies Prior psychiatric hospitalizations: Denies Substance Abuse history: Denies Previous psychiatric medications tried:Unable to recall Outpatient treatment: PCP PAST MEDICAL HISTORY: none reported Family Psychiatric History: None reported or documented SOCIAL HISTORY Marital Status: Living Arrangements:Lives with Employment Status: unemployed Access to guns/weapons: Denies Education: 6th grade History of Abuse: none reported Legal History: none reported REVIEW OF SYSTEMS Constitutional: Negative for weight loss ENT: Negative for stridor Respiratory: Negative for cough or hemoptysis All other systems reviewed and are negative MENTAL STATUS EXAMINATION General Appearance and Behavior: Age appropriate, good hygiene, wearing appropriate clothes, good eye contact, cooperative polite with questioning. Cooperation: Participating/engaged Psychomotor Behavior: unremarkable and within normal limits Mood: Calm Affect and affective range: congruent with mood Thought Process: Goal directed Thought Content: reality oriented Speech: Normal volume, Regular rate and rhythm, Suicidal Ideation: Denies Homicidal Ideation: Denies Hallucinations: Denies Delusions: None Impulse Control: Normal Insight and Judgment: Limited insight and judgment, Memory: Normal, Attention: Normal, Orientation: Alert, oriented, Assessment and Plan (1) Hx depression Treatment Continue home meds. Sitter: Per primary Medical: Per primary Disposition:Do not recommend acute inpatient psychiatric treatment. [employer] will provide patient with outpatient resources. Will sign off. Thanks Case staffed with Dr. Martin Medications and Allergies Medications and Allergies Allergies Allergy/AdvReac Type Severity Reaction Status Date / Time No Known Allergies Allergy Unverified 12/09/21 13:45 Home Medications Medication Instructions Recorded Confirmed Last Taken Type Vit-Fe Fumar-FA [ 1 tab PO QDAY 12/09/21 12/09/21 Unknown History Vitamin] Ibuprofen [Motrin] 800 mg PO Q8HR PRN 21 Days #40 12/13/21 Unknown Rx tablet oxyCODONE /ACETAMINOPHEN [Percocet 1 tab PO Q4HR PRN 21 Days #30 tab 12/13/21 Unknown Rx 5/325] Active Meds: Active Medications Acetaminophen (Acetaminophen 325 Mg Tab) 650 mg PO Q4H PRN PRN Reason: Fever >100.5/BIANCHI Hydromorphone HCl (Hydromorphone 1 Mg/1 Ml Inj) 0.5 mg IV Q4H PRN PRN Reason: breakthrough pain > 7/10 Last Admin: 12/13/21 20:06 Dose: 0.5 mg Oxytocin/Sodium Chloride (Pitocin/Ns 30 Unit/500ml) 30 units in 500 mls @ 40 mls/hr IV TITR DO; Protocol Fentanyl/Bupivacaine/Sodium Chlor (Fentanyl-Bupiv 2 Mcg/Ml-0.125%) 200 mcg in 100 mls @ 8 mls/hr EPIDURAL TITRATE DO; Protocol Ibuprofen (Ibuprofen 800 Mg Tab) 800 mg PO Q6H PRN PRN Reason: Pain, Moderate (4-6) Last Admin: 12/14/21 21:43 Dose: 800 mg Magnesium Hydroxide (Magnesium Hydroxide (Mom) Oral Liqd Udc) 30 ml PO QHS PRN PRN Reason: Constip Unrelieved By Senna Last Admin: 12/14/21 18:21 Dose: 30 ml Morphine Sulfate (Morphine 4 Mg/1 Ml Inj) 4 mg IV Q4H PRN PRN Reason: Pain , Severe (7-10) Last Admin: 12/14/21 02:35 Dose: 4 mg Multi-Ingredient Ointment (Lanolin/Zinc/Dimethicone (Lansinoh) 7 Gm) 1 applic TP PRN PRN PRN Reason: dryness/cracking Multivitamins/Iron/Calcium ( [id number]-[id number] Fumarate-Folic Acid Vit Tab) 1 each PO QDAY DO Last Admin: 12/15/21 10:15 Dose: 1 each Naloxone HCl (Naloxone 0.4 Mg/1 Ml Inj) 0.2 mg IV Q2MIN PRN PRN Reason: Res Rate </= 8 or 02 SAT < 92% Ondansetron HCl (Ondansetron 4 Mg/2 Ml Inj) 4 mg IV Q8H PRN PRN Reason: Nausea And Vomiting Oxycodone/Acetaminophen (Oxycodone /Acetaminophen 5-325mg Tab) 2 tab PO Q6H PRN PRN Reason: Pain, Moderate (4-6) Last Admin: 12/15/21 08:25 Dose: 2 tab Pantoprazole Sodium (Pantoprazole 40 Mg Inj) 40 mg IV QDAY DO Stop: 12/16/21 10:01 Last Admin: 12/15/21 10:15 Dose: 40 mg Promethazine HCl (Promethazine 25 Mg Tab) 25 mg PO Q6H PRN PRN Reason: Nausea And Vomiting Promethazine HCl (Promethazine 25 Mg Rect Supp) 25 mg IA Q6H PRN PRN Reason: Nausea And Vomiting Senna (Sennosides 8.6 Mg Tab) 17.2 mg PO QHS PRN PRN Reason: Constipation Simethicone (Simethicone 80 Mg Chew Tab) 80 mg PO Q6H PRN PRN Reason: Gas pain Last Admin: 12/14/21 18:21 Dose: 80 mg Sodium Chloride (Sodium Chloride 0.9% 10 Ml Flush Syringe) 10 ml IV PRN PRN PRN Reason: flush Sodium Chloride (Sodium Chloride 0.9% 10 Ml Flush Syringe) 10 ml IV PRN NR Stop: 12/25/21 15:59 Witch Marilee/Glycerin (Witch Marilee/ Glycerin Pad) 1 each TP PRN PRN PRN Reason: Hemorrhoids/cleansing/soothing Mental Status Exam - Vital signs Last Vital Signs Temp 98.3 F 12/15/21 08:13 Pulse 72 12/15/21 08:13 Resp 18 12/15/21 08:13 BP 105/55 12/15/21 08:13 Pulse Ox 98 12/15/21 08:20 Results Result Diagrams: 12/14/21 05:09 All other labs normal.
[2021-12-15 15:40] VITALS: BP 106/69
== END 2021-12-15 16:02 | disposition home or self-care (01) | DRG 785 ==
LOC: APU 05:06 → OB 17:26
PROVIDERS: ADMIT Obstetrics & Gynecology; ATTEND Obstetrics & Gynecology
PROC: 10D00Z1 Extraction of Products of Conception, Low, Open Approach (ICD-10-PCS; principal; 2021-12-13)
PROC: 0UB70ZZ Excision of Bilateral Fallopian Tubes, Open Approach (ICD-10-PCS; 2021-12-13)
PROC: 3E0T3BZ Introduction of Anesthetic Agent into Peripheral Nerves and Plexi, Percutaneous Approach (ICD-10-PCS; 2021-12-13)
DX: O32.1XX0 Maternal care for breech presentation, not applicable or unspecified (principal); O34.211 Maternal care for low transverse scar from previous cesarean delivery; Z37.0 Single live birth; Z20.822 Contact with and (suspected) exposure to COVID-19; O99.214 Obesity complicating childbirth; E66.01 Morbid (severe) obesity due to excess calories; O99.824 Streptococcus B carrier state complicating childbirth; O99.62 Diseases of the digestive system complicating childbirth; K66.0 Peritoneal adhesions (postprocedural) (postinfection); O90.89 Other complications of the puerperium, not elsewhere classified; R07.89 Other chest pain; Z3A.39 39 weeks gestation of pregnancy
CPT/HCPCS: 36415; 71046; 84484; 85025; 85027; 86592; 86850; 86900; 86901; 88302; 93005; 99211; G0378; J3490; J7121; C9113; G0463; J0690; J1170; J1885; J2270; J2370; J2405; J2765; J3010; J7030; J7120; U0003